=== PATIENT | female | born 1990 | race Caucasian/White ===

== ENCOUNTER 2019-06-27 11:25 | Emergency (ER) | payer MEDICAID ==
[~2019-06-27] VITALS: Ht 162.6 cm; Wt 77.1 kg
[2019-06-27 11:37] VITALS: BP_SYST 164
[2019-06-27] MEDS ORDERED: KETOROLAC TROMETHAMINE 60 MG/2 ML VIAL IM ONE (13:30)
[2019-06-27] MEDS ORDERED: DIPHENHYDRAMINE INJ 50 MG/ML VIAL IM ONE (13:30)
[2019-06-27 13:45] VITALS: BP_SYST 142
[2019-06-27] MEDS ORDERED: DIPH-TET-PERTUS Vaccine 0.5 ML VIAL (ADACEL) I.M. ONE (14:15)
== END 2019-06-27 13:45 | disposition home or self-care (01) ==
LOC: SED 11:25
DX: L03.115 Cellulitis of right lower limb (principal); R03.0 Elevated blood-pressure reading, without diagnosis of hypertension; Z88.0 Allergy status to penicillin; Z91.013 Allergy to seafood
CPT/HCPCS: 81025; 96372; 99283; J1200; J1885

== ENCOUNTER 2020-07-12 13:38 | Emergency (ER) | payer MEDICAID ==
[~2020-07-12] VITALS: Ht 162.6 cm; Wt 83.9 kg
[2020-07-12 13:47] VITALS: BP_SYST 137
--- NOTE | 2020-07-12 13:52 | NUR ---
Pt triaged and placed in tent waiting for MD evaluation
--- NOTE | 2020-07-12 13:55 | NUR ---
Pt walked in to ER with c/o right flank pain, 8/10 radiating to back since this am. Pt reports feeling a strain while picking up her children. Denies n/v, fever at this time. Denies burning, frequency or urgency. V/S stable, no distress noted.
--- NOTE | 2020-07-12 14:01 | NUR ---
ER Dr. Santos at bedside examining patient.
[2020-07-12 14:16] LABS: BILIRUBIN,URINE NEGATIVE (NEGATIVE); BLOOD, URINE NEGATIVE (NEGATIVE); CLARITY/URINE SL CLOUDY (CLEAR); COLOR,URINE YELLOW (YELLOW); GLUCOSE,URINE NEGATIVE (NEGATIVE); KETONES,URINE NEGATIVE (NEGATIVE); LEUKOCYTE ESTERASE ,URINE 2+ (NEGATIVE); NITRITE, URINE NEGATIVE (NEGATIVE); PH,URINE 6.5 (5.0-8.0); PROTEIN URINE NEGATIVE (NEGATIVE); UROBILINOGEN,URINE 0.2 (0.2-1.0)
[2020-07-12 14:26] LABS: BACTERIA,URINE MODERATE /HPF (None Seen); RBC,URINE 0-3 /HPF (0-3)
[2020-07-12] MEDS ORDERED: SULFAMETHOXAZOLE/TRIMETHOPR DS 1 TABLET PO ONE (14:45)
[2020-07-12] MEDS ORDERED: HYDROcodone/ACETAMIN 5-325 MG TAB (NORCO/ VICODIN) PO ONE (14:45)
[2020-07-12 14:52] VITALS: BP_SYST 137
--- NOTE | 2020-07-12 14:53 | NUR ---
Patient given written and verbal discharge instructions and verbalizes understanding. ER MD discussed with patient the results and treatment provided. Patient in stable condition. ID arm band removed. Rx of Flexeril, Motrin, Bactrim and Tylenol with Codeine given. Patient educated on pain management and to follow up with PMD. Pain Scale 3. Opportunity for questions provided and answered. Medication side effect fact sheet provided.
== END 2020-07-12 14:53 | disposition home or self-care (01) ==
LOC: SED 13:38
DX: N39.0 Urinary tract infection, site not specified (principal); Z88.0 Allergy status to penicillin; Z88.2 Allergy status to sulfonamides
CPT/HCPCS: 81000-TC; 87086; 99283

== ENCOUNTER 2021-10-23 09:03 | Emergency (ER) | payer MEDICAID ==
[~2021-10-23] VITALS: Ht 162.6 cm; Wt 86.2 kg
--- NOTE | 2021-10-23 09:04 | NUR ---
BROUGHT BACK TO BED #8 AND TRIAGED. REPORT GIVEN TO SANJU
[2021-10-23 09:05] VITALS: BP_SYST 156
--- NOTE | 2021-10-23 09:17 | NUR ---
Myself Cami ELIAS assumed care of pt. Pt is in bed #8 coming from home ambulatory with steady gait. Pt is A&Ox4. Skin intact. Pt seems restless and is crying. Pt c/o feeling very anxious, has vomited twice this morning, nauseous, and under alot of stress. Pt states symptoms started yesterday. Pt states she also ahs left upper back pain and rates pain 6/10 non-radiating that started yesterday as well. No chest pain and no sob. Connected pt to secured entrance monitor and VSS. Pt is allergic to Penicillin. Has hx of anxiety. Bed in lowest position.
[2021-10-23] MEDS ORDERED: LORazepam 1 MG TABLET PO ONE (09:30)
--- NOTE | 2021-10-23 09:32 | NUR ---
ER at bedside examining patient.
--- NOTE | 2021-10-23 09:45 | NUR ---
EKG performed at by Cami ELIAS. Physician given copy of EKG for review.
[2021-10-23 10:25] VITALS: BP_SYST 118
--- NOTE | 2021-10-23 10:26 | NUR ---
Patient given written and verbal discharge instructions and verbalizes understanding. ER MD discussed with patient the results and treatment provided. Patient in stable condition. ID arm band removed. Patient educated on pain management and to follow up with PMD. Pain Scale . Opportunity for questions provided and answered. Medication side effect fact sheet provided.
== END 2021-10-23 10:25 | disposition home or self-care (01) ==
LOC: SED 09:03
DX: F41.9 Anxiety disorder, unspecified (principal); Z88.0 Allergy status to penicillin; Z91.013 Allergy to seafood
CPT/HCPCS: 93005; 99283

== ENCOUNTER 2022-11-29 01:25 | Emergency (ER) | payer MEDICAID ==
[~2022-11-29] VITALS: Ht 162.6 cm; Wt 84.4 kg
--- NOTE | 2022-11-29 01:50 | NUR ---
Patient to ER bed 08 to gown for evaluation. Side rails up. Report given to MYAH DIAS.
[2022-11-29 01:51] VITALS: BP_SYST 157
--- NOTE | 2022-11-29 01:55 | NUR ---
PT BIB FROM HOME, AMBULATED TO BED 8. PT A&Ox4, ABLE TO MAKE NEEDS KNOWN. PT C/O EPIGASTRIC PAIN x2 DAYS, N/V x3 DAYS. PT RATES PAIN 8. PT DESCRIBES PAIN "STABBING" AND " SHARP." PT STATES SHE FEELS "BURNING" SENSATION ON LOWER ABD. PT STATES SHE HAD "WATERY" DIARRHEA ON THURSDAY AND YESTERDAY IT WAS "NORMAL." PT DENIES BLOODY STOOLS. PT DENIES NOTING BLOOD IN VOMIT. PT DESCRIBES VOMIT "YELLOW AND GREEN." PT DENIES FEVER AND DIFFICULTY URINATING. PT STATES SHE TOOK TYLENOL 500MG ON THURSDAY AT 1800. SAFETY PRECAUTIONS IN PLACE.
--- NOTE | 2022-11-29 01:55 | NUR ---
ER Dr. MILLIGAN at bedside examining patient.
[2022-11-29] MEDS ORDERED: KETOROLAC TROMETHAMINE 30 MG VIAL IM ONE (02:15)
[2022-11-29] MEDS ORDERED: ONDANSETRON 4 MG ODT TAB PO ONE (02:15)
[2022-11-29 02:29] LABS: BASOPHILS # (AUTO) 0.1 K/uL (0.0-0.2); BASOPHILS % (AUTO) 0.8 % (0.0-2.0); EOSINOPHILS % (AUTO) 0.4 % (0.0-4.0); HEMATOCRIT 41.6 % (36-48); HEMOGLOBIN 14.4 g/dL (12.0-16.0); LYMPHOCYTES # (AUTO) 1.8 K/uL (1.0-5.5); LYMPHOCYTES % (AUTO) 18.3 % (20.5-51.5); MEAN CORPUSCULAR HEMOGLOBIN 36 pg (27-31); MEAN CORPUSCULAR HGB CONC 35 % (32-36); MEAN CORPUSCULAR VOLUME 103 fL (79.0-98.0); MONOCYTES # (AUTO) 0.6 K/uL (0.0-1.0); MONOCYTES % (AUTO) 6.4 % (1.7-9.3); NEUTROPHILS # (AUTO) 7.3 K/uL (1.8-7.7); NEUTROPHILS % (AUTO) 74.1 % (40.0-70.0); PLATELET COUNT (AUTO) 205 K/uL (130-430); RED BLOOD CELL COUNT(AUTO) 4.03 MIL/uL (4.2-6.2); RED CELL DISTRIBUTION WIDTH 12.9 % (9.0-15.0); WHITE BLOOD COUNT (AUTO) 9.8 K/uL (4.8-10.8)
[2022-11-29 02:38] LABS: BILIRUBIN,URINE 2+ (NEGATIVE); BLOOD, URINE NEGATIVE (NEGATIVE); CLARITY/URINE CLEAR (CLEAR); COLOR,URINE YELLOW (YELLOW); GLUCOSE,URINE NEGATIVE (NEGATIVE); KETONES,URINE 1+ (NEGATIVE); LEUKOCYTE ESTERASE ,URINE NEGATIVE (NEGATIVE); NITRITE, URINE POSITIVE (NEGATIVE); PROTEIN URINE 1+ (NEGATIVE)
[2022-11-29 02:44] LABS: ALBUMIN 3.3 g/dL (3.4-4.8); CREATININE 0.84 mg/dL (0.55-1.30); TOTAL BILIRUBIN 2.6 mg/dL (0.0-1.0)
[2022-11-29 02:46] LABS: BACTERIA,URINE MODERATE /HPF (None Seen)
[2022-11-29 02:49] LABS: MUCUS,URINE None Seen /LPF (None Seen)
[2022-11-29] MEDS ORDERED: MAG-AL HYDROX/SIMETH 30 ML UDC PO ONE (03:00)
[2022-11-29] MEDS ORDERED: OXYCODONE/ACETAMINOPHEN 5-325 TABLET PO ONE (04:45)
[2022-11-29] MEDS ORDERED: OXYC-128 PO (04:47)
[2022-11-29] MEDS ORDERED: ONDA-8 TL (04:47)
--- NOTE | 2022-11-29 05:02 | NUR ---
Patient given written and verbal discharge instructions and verbalizes understanding. ER DR MILLIGAN discussed with patient the results and treatment provided. Patient in stable condition. ID arm band removed. Rx of ZOFRAN AND PERCOCET given. Patient educated on pain management and to follow up with PMD. Pain Scale 0/10. Opportunity for questions provided and answered. Medication side effect fact sheet provided.
[2022-11-29 05:05] VITALS: BP_SYST 123
== END 2022-11-29 05:05 | disposition home or self-care (01) ==
LOC: SED 01:25
DX: K85.20 Alcohol induced acute pancreatitis without necrosis or infection (principal); R74.01 Elevation of levels of liver transaminase levels; R10.13 Epigastric pain; R11.2 Nausea with vomiting, unspecified; R19.7 Diarrhea, unspecified; Z88.0 Allergy status to penicillin; Z91.013 Allergy to seafood; Z79.899 Other long term (current) drug therapy
CPT/HCPCS: 99285; 76705; 80053; 81000; 83690; 85025; 87086; 36415; 81025; 96372; Q0162; J1885

== ENCOUNTER 2023-02-04 09:34 | Emergency (ER) | payer MEDICAID ==
[~2023-02-04] VITALS: Ht 162.6 cm; Wt 81.6 kg
[~2023-02-04 09:34] MED LIST: ONDA-8 TL; OXYC-128 PO
[2023-02-04 09:42] VITALS: BP_SYST 132; PULSE 110; RESP 18; TEMP 98.3; O2SAT 98
[2023-02-04 09:58] LABS: BLOOD, URINE 3+ (NEGATIVE); COLOR,URINE YELLOW (YELLOW); GLUCOSE,URINE NEGATIVE (NEGATIVE); KETONES,URINE 1+ (NEGATIVE); LEUKOCYTE ESTERASE ,URINE NEGATIVE (NEGATIVE); NITRITE, URINE NEGATIVE (NEGATIVE); PH,URINE >=9.0 (5.0-8.0); PROTEIN URINE 2+ (NEGATIVE)
[2023-02-04] MEDS ORDERED: KETOROLAC TROMETHAMINE 30 MG VIAL IVP ONE (10:00)
[2023-02-04] MEDS ORDERED: ONDANSETRON HCL 4 MG/2 ML VIAL IVP ONE (10:00)
[2023-02-04 10:05] LABS: BASOPHILS # (AUTO) 0.1 K/uL (0.0-0.2); BASOPHILS % (AUTO) 0.7 % (0.0-2.0); EOSINOPHILS % (AUTO) 0.2 % (0.0-4.0); HEMATOCRIT 35.6 % (36-48); LYMPHOCYTES # (AUTO) 2.5 K/uL (1.0-5.5); LYMPHOCYTES % (AUTO) 28.2 % (20.5-51.5); MEAN CORPUSCULAR HEMOGLOBIN 33 pg (27-31); MEAN CORPUSCULAR HGB CONC 34 % (32-36); MEAN CORPUSCULAR VOLUME 97 fL (79.0-98.0); MONOCYTES # (AUTO) 0.5 K/uL (0.0-1.0); MONOCYTES % (AUTO) 5.7 % (1.7-9.3); NEUTROPHILS # (AUTO) 5.8 K/uL (1.8-7.7); NEUTROPHILS % (AUTO) 65.2 % (40.0-70.0); PLATELET COUNT (AUTO) 226 K/uL (130-430); RED BLOOD CELL COUNT(AUTO) 3.65 MIL/uL (4.2-6.2); RED CELL DISTRIBUTION WIDTH 13.4 % (9.0-15.0); WHITE BLOOD COUNT (AUTO) 8.9 K/uL (4.8-10.8)
[2023-02-04 10:15] LABS: BILIRUBIN,URINE NEGATIVE (NEGATIVE); CLARITY/URINE SLIGHTLY HAZY (CLEAR)
[2023-02-04 10:20] LABS: BACTERIA,URINE RARE /HPF (None Seen); WBC,URINE 0-3 /HPF (0-3)
[2023-02-04 10:28] LABS: ANION GAP 12 (5-15); CARBON DIOXIDE 26 mmol/L (23-29); CHLORIDE 102 mmol/L (98-107); CREATININE 0.84 mg/dL (0.55-1.30); GFR AFRICAN AMERICAN 101 mL/min (>90); GLUCOSE 117 mg/dL (74-106); POTASSIUM 4.1 mmol/L (3.5-5.1); SODIUM SERUM 140 mmol/L (136-145); UREA NITROGEN, BLOOD 6 mg/dL (8-21)
[2023-02-04 10:31] LABS: GFR NON AFRICAN-AMERICAN 84 mL/min (>90)
[2023-02-04 10:32] LABS: ALANINE AMINOTRANSFERASE 8 U/L (12-78); ALBUMIN 4.1 g/dL (3.4-4.8); ASPARTATE AMINOTRANSFERASE 15 U/L (10-37); LIPASE 64 U/L (73-393); TOTAL BILIRUBIN 2.3 mg/dL (0.0-1.0); TOTAL PROTEIN, SERUM 7.3 g/dL (6.4-8.3)
[2023-02-04 10:33] LABS: ALCOHOL, BLOOD < 3 mg/dL (<10)
[2023-02-04] MEDS ORDERED: IBUP-1969 PO (10:45)
[2023-02-04 11:42] VITALS: BP_SYST 126; PULSE 120; RESP 20; TEMP 97.8; O2SAT 99
== END 2023-02-04 11:46 | disposition home or self-care (01) ==
LOC: SED 09:34
DX: K76.0 Fatty (change of) liver, not elsewhere classified (principal); E80.4 Gilbert syndrome; R10.11 Right upper quadrant pain; Z88.0 Allergy status to penicillin; Z91.013 Allergy to seafood; Z79.899 Other long term (current) drug therapy
CPT/HCPCS: 99285; 96374; 76700; 96375; 80053; 83690; 85025; 36415; 81025; 81000; G0482; J1885; J2405

== ENCOUNTER 2023-11-25 16:25 | Emergency (ER) | payer OTHER, MEDICAID ==
[~2023-11-25] VITALS: Ht 162.6 cm; Wt 83.9 kg
[~2023-11-25 16:25] MED LIST changes: +IBUP-1969 PO
[2023-11-25 16:39] VITALS: BP_SYST 122; PULSE 89; RESP 18; TEMP 98; O2SAT 98
[2023-11-25] MEDS ORDERED: DICL75TA5 PO (17:30)
== END 2023-11-25 18:00 | disposition home or self-care (01) ==
LOC: SED 16:25
DX: S80.12XA Contusion of left lower leg, initial encounter (principal); F41.9 Anxiety disorder, unspecified; Z88.0 Allergy status to penicillin; Z79.899 Other long term (current) drug therapy; Z91.013 Allergy to seafood; V89.2XXA Person injured in unspecified motor-vehicle accident, traffic, initial encounter; Y93.89 Activity, other specified; Y92.89 Other specified places as the place of occurrence of the external cause; Y99.8 Other external cause status
CPT/HCPCS: 73590; 99283